=== PATIENT | male | born 1975 | race American Indian/Alaskan Native ===

== ENCOUNTER 2017-03-20 12:17 | Day surgery (SDC) | payer BC ==
[2017-03-20 12:46] VITALS: BMI 24.3
--- NOTE | 2017-03-20 12:50 | ED PDOC ---
Arrival/HPI - General Time Seen by Provider: 03/20/17 12:32 Historian: Patient - History of Present Illness Narrative History of Present Illness (Text): 03/20/17 12:48 A 41 year old male with no known past medical history, present to the emergency department after being sent by Dr. Lito Lee for pre-op labs for a bone marrow biopsy later today. Dr. Lee has asked to admit the patient to his service. The patient denies fevers, chills, nausea, vomiting, diarrhea, abdominal pain, headache, dizziness, or any other complaint. Time/Duration: Prior to Arrival Symptom Onset: Sudden Symptom Course: Unchanged Activities at Onset: Rest, Light Context: Home Past Medical History - Provider Review Nursing Documentation Reviewed: Yes Family/Social History - Physician Review Nursing Documentation Reviewed: Yes Family/Social History: No Known Family HX Allergies/Home Meds Allergies/Adverse Reactions: Allergies No Known Allergies Allergy (Verified 03/20/17 12:45) Home Medications: Home Meds Medication Instructions Recorded Confirmed Folic Acid [Folic Acid] 1 tab PO DAILY 03/20/17 03/20/17 Physical Exam - Physical Exam Narrative Physical Exam (Text): - Review of Systems Constitutional: Normal. absent: Fatigue, Weight Change, Fevers Eyes: Normal ENT: Normal Respiratory: Normal absent: SOB, Cough, Sputum Cardiovascular: Normal absent: Chest pain, Palpitations, Syncope Gastrointestinal: Normal absent: Abdominal pain, Diarrhea, Nausea, Vomiting Genitourinary: Normal. absent: Dysuria, Frequency, Hematuria Musculoskeletal: Normal. absent: Arthralgias, Back Pain, Neck Pain Skin: Normal Neurological: Normal absent: Focal Weakness Endocrine: Normal Hemo/Lymphatic: Normal Psychiatric: Normal - Physical exam Patient appears age appropriate, speaking full sentences without difficulty - Systems Exam Head: Present: Atraumatic, Normocephalic Pupils: Present: PERRL Extraocular Muscles: Present: EOMI Conjunctiva: Present: Normal Mouth: Present: Moist Mucous Membranes Neck: Present: Normal Range of Motion. No: MIDLINE TENDERNESS, Paraspinal Tenderness Respiratory/Chest: Present: Clear to Auscultation, Good Air Exchange. No: Respiratory Distress, Accessory Muscle Use, Tachypnic Cardiovascular: Present: Regular Rate and Rhythm, Normal S1, S2, Peripheral Pulses Present. No: Murmurs Abdomen: Present: Normal Bowel Sounds, No: Tenderness, Peritoneal Signs, Rebound, Guarding, Distention Back: Present: Normal Inspection. No: Midline Tenderness, Paraspinal Tenderness Upper Extremity: Present: Normal Inspection. No: Cyanosis, Edema Lower Extremity: Present: Normal Inspection. No: Edema Neurological: Present: GCS=15, Speech Normal, cranial nerves II through XII fully intact with no cerebellar abnormality, neuro-sensory fully intact. No focal neurological deficits. Skin: Present: Warm, Dry, Normal Color. No: Rashes Lymphatic: Present: OX3, NI, NC Psychiatric: Present: Alert, Oriented x 3, Normal Insight, Normal Concentration Vital Signs Reviewed: Yes Vital Signs Temp Pulse Resp BP Pulse Ox 03/20/17 13:25 61 18 118/71 100 03/20/17 12:48 98.1 F 59 L 18 121/74 100 Temperature: Afebrile Blood Pressure: Normal Pulse: Bradycardic Respiratory Rate: Normal Appearance: Positive for: Well-Appearing, Non-Toxic, Comfortable Pain Distress: None Mental Status: Positive for: Alert and Oriented X 3 Medical Decision Making ED Course and Treatment: 03/20/17 12:52 Impression: A 31 year old male sent in by Dr. Lito Lee for pre-op labs for a bone marrow biopsy later today. On exam, patient has no acute findings. Plan: -- EKG -- Chest X-ray -- CT Bone Marrow -- Labs -- Reassess and disposition Progress Notes: 03/20/17 14:33 Chest X-ray Dictator : Niyah Mendez MD Report Date : 03/20/2017 13:31:18 IMPRESSION: No active pulmonary disease. - Lab Interpretations Lab Results: 03/20/17 13:39 03/20/17 13:39 Lab Results 03/20/17 13:39: Sodium 141, Potassium 4.6, Chloride 102, Carbon Dioxide 29, Anion Gap 15, BUN 12, Creatinine 1.0, Est GFR ( Amer) > 60, Est GFR (Non- Af Amer) > 60, Random Glucose 89, Calcium 9.5, Total Bilirubin 0.7, AST 34, ALT 43, Alkaline Phosphatase 40, Total Protein 7.7, Albumin 4.5, Globulin 3.3, Albumin/Globulin Ratio 1.4 03/20/17 13:39: PT 11.6, INR 1.07, APTT 31.0 H 03/20/17 13:39: WBC 3.2 L, RBC 4.72, Hgb 13.4 L, Hct 41.6 L, MCV 88.1, MCH 28.4 , MCHC 32.2, RDW 13.6, Plt Count 99 L, MPV 10.4, Gran % 46.8 L, Lymph % (Auto) 42.0 H, [place] % (Auto) 7.5 H, Eos % (Auto) 3.1, Baso % (Auto) 0.6, Gran # 1.49, Lymph # 1.3, [place] # 0.2, Eos # 0.1, Baso # 0.02 03/20/17 13:39: Blood Type B POSITIVE, Antibody Screen Negative, BBK History Checked No verified bt I have reviewed the lab results: Yes - RAD Interpretation Radiology Orders: 03/20/17 12:53 CHEST PORTABLE [RAD] Stat 03/20/17 13:32 CT BONE MARROW BX BUNDLE [CT] Stat - EKG Interpretation Interpreted by ED Physician: Yes Type: 12 lead EKG - Medication Orders Current Medication Orders: Discontinued Medications Fentanyl (Fentanyl) Confirm Administered Dose 200 mcg .ROUTE .STK-MED ONE Stop: 03/20/17 13:53 Heparin Sodium (Porcine) (Heparin Lock Flush) Confirm Administered Dose 500 units .ROUTE .STK-MED ONE Stop: 03/20/17 13:53 Midazolam HCl (Versed Inj) Confirm Administered Dose 4 mg .ROUTE .STK-MED ONE Stop: 03/20/17 13:53 - Scribe Statement The provider has reviewed the documentation as recorded by the Benson Patel Provider [place] Attestation: All medical record entries made by the Benson were at my direction and personally dictated by me. I have reviewed the chart and agree that the record accurately reflects my personal performance of the history, physical exam, medical decision making, and the department course for this patient. I have also personally directed, reviewed, and agree with the discharge instructions and disposition. Disposition/Present on Arrival - Present on Arrival Any Indicators Present on Arrival: No - Disposition Have Diagnosis and Disposition been Completed?: Yes Diagnosis: Encounter for medical clearance for patient hold Disposition: HOSPITALIZED Disposition Time: 15:18 Patient Plan: Admission Condition: STABLE Referrals: Danna Mckinney MD [Primary Care Provider] - Follow up with primary
--- NOTE | 2017-03-20 13:33 | RAD ---
HISTORY: Cough COMPARISON: No prior. FINDINGS: LUNGS: The lungs are well inflated and clear. PLEURA: No significant pleural effusion identified, no pneumothorax apparent. CARDIOVASCULAR: Normal. OSSEOUS STRUCTURES: No significant abnormalities. VISUALIZED UPPER ABDOMEN: Normal. OTHER FINDINGS: None. IMPRESSION: No active pulmonary disease.
[2017-03-20] MEDS ORDERED: Midazolam 2 MG/2 ML VIAL ONE (13:52)
[2017-03-20 13:57] LABS: BASO # 0.02 K/mm3 (0.0-2.0); BASO % 0.6 % (0.0-3.0); EOS # 0.1 (0.0-0.7); EOS % 3.1 % (1.5-5.0); GRAN # 1.49 (1.4-6.5); GRAN % 46.8 % (50.0-68.0); HEMATOCRIT 41.6 % (42.0-52.0); LYMPH # 1.3 (1.2-3.4); MEAN CELL VOLUME 88.1 fl (80.0-105.0); MEAN CORPUSCULAR HEMOGLOBIN 28.4 pg (25.0-35.0); MEAN CORPUSCULAR HGB CONC 32.2 g/dl (31.0-37.0); MEAN PLATELET VOLUME 10.4 fl (7.0-11.0); MONO # 0.2 (0.1-0.6); MONO % 7.5 % (1.0-6.0); RED CELL DISTRIBUTION WIDTH 13.6 % (11.5-14.5); WHITE BLOOD COUNT 3.2 10^3/ul (4.5-11.0)
[2017-03-20 14:07] LABS: INR 1.07 (0.93-1.08)
[2017-03-20 14:10] LABS: ALB/GLOB RATIO 1.4 (1.1-1.8); ALKALINE PHOSPHATASE 40 U/L (38-133); ALT/SGPT 43 U/L (7-56); AST/SGOT 34 U/L (15-59); BILIRUBIN,TOTAL 0.7 mg/dL (0.2-1.3); BLOOD UREA NITROGEN 12 mg/dL (7-21); CALCIUM 9.5 mg/dL (8.4-10.5); CARBON DIOXIDE 29 mmol/L (21-33); CHLORIDE 102 mmol/L (98-107); GFR AFRICAN-AMERICAN > 60; GLUCOSE,RANDOM 89 mg/dL (70-110); POTASSIUM 4.6 mmol/L (3.6-5.0); SODIUM 141 mmol/L (132-148); TOTAL PROTEIN 7.7 g/dL (5.8-8.3)
--- NOTE | 2017-03-20 15:27 | CARD ---
APPROVED REPORT EKG Measurement Heart [id number] <Conclusion> Sinus bradycardia Otherwise normal ECG
[2017-03-20] MEDS ORDERED: Sodium Chloride 0.45% 1,000 ML IV SCH (16:30)
[2017-03-20 16:41] VITALS: BP 117/74; PULSE 58; RESP 20; TEMP 98.1; O2SAT 100
--- NOTE | 2017-03-21 23:07 | CT ---
PROCEDURE: CT guided pelvic bone marrow aspiration and biopsy HISTORY: Leukocytosis. Evaluate for myeloproliferative disorder PHYSICIAN(S): Lito Lee MD. TECHNIQUE: The relative risks and indications of the procedure were explained to the patient and consent obtained. The patient was placed prone on the CT scanner and preliminary images through the pelvis obtained. Conscious sedation and monitoring were provided throughout the procedure by a nurse. The left posterior superior iliac spine selected for biopsy. A posterior approach was selected and the area prepped and draped in the usual sterile fashion. 1% Xylocaine was used to anesthetize the skin and soft tissues. And on control bone marrow needle was advanced to the posterior superior iliac spine. The needle was advanced to the cortex. Bone marrow aspiration was performed. Next a long core biopsy was obtained. Specimens were processed by Dr. frias. IMPRESSION: 1. CT-guided bone marrow aspiration and biopsy biopsy as described above.
== END 2017-03-20 16:21 | disposition home or self-care (01) ==
LOC: ED 12:17 → SDS 12:54 → ED 14:30 → SDS 16:21
PROVIDERS: ATTEND Radiology Vascular & Interventional Radiology
DX: D75.9 Disease of blood and blood-forming organs, unspecified (principal); D72.829 Elevated white blood cell count, unspecified
CPT/HCPCS: 38221; 71010; 80053; 85025; 85610; 85730; 86850; 86900; 93005; 99281; J2250; J3010